=== PATIENT | female | born 1990 | race Caucasian/White ===

== ENCOUNTER → 2019-12-06 | Outpatient (CLI) | payer OTHER ==
--- NOTE | 2019-12-07 03:52 | REP ---
Clinical: Dating and viability. Technique: Transabdominal first trimester obstetrical ultrasound with color Doppler evaluation. Findings: Ultrasound examination demonstrates single live early intrauterine . CRL of 5.5 cm and mean sac diameter of 5.2 cm corresponds to 11 weeks 4 days gestational age with estimated date of delivery 06/22/2020. heart rate equals 167 beats per minute. No gross abnormalities are identified. Maternal ovaries appear normal. Placenta identified anteriorly. Cervix measures 3.3 cm length and appears closed. Impression: Single live early intrauterine at 11 weeks 4 days gestational age. Complete anatomical assessment should be performed at 19-20 weeks.
== END ==
LOC: M WHC 08:26
PROVIDERS: ATTEND Obstetrics & Gynecology
DX: Z36.89 Encounter for other specified antenatal screening (principal); Z3A.11 11 weeks gestation of pregnancy

== ENCOUNTER 2020-06-17 13:51 | Inpatient (IN) | payer OTHER ==
[2020-06-17] VITALS (21 sets, daily range): BP systolic 93–131; BP diastolic 50–74
[~2020-06-17] VITALS: Ht 152.4 cm; Wt 80.5 kg
[~2020-06-17 13:51] MED LIST changes: -DOCU100C16 PO; -IBUP-1022 PO
[2020-06-17] MEDS ORDERED: LACTATED RINGER'S 1000 ML IV STA (14:14)
--- NOTE | 2020-06-17 14:35 | HPEPDOC ---
Obstetrical History & Physical General Date of Admission Jun 17, 2020 at 14:12 History of Present Illness 30 yo at 39+2 weeks gestation by 11+4 week US on [id number] presents to L&D with the complaint of continued regular, painful contractions. She denies any vaginal bleeding or leakage of fluid. She endorses excellent movement. Chief Complaint: Contractions, term Information Provided By: Patient Age: 30 : 3 Term: 2 Pre-term: 0 Abortions: 0 Livin Care Care: Good Care Dating Final EDC: Jun 22, 2020 Final EDC for Daily Update: Jun 22, 2020 Final EDC by: 1st trimester (US) (11+4 week US on [id number] set OSEAS of [id number]) Antepartum Course Diagnos(e)s Overweight Cousin with trisomy 21. Low risk cff DNA genetic screening. 1hr GTT 148, 3hr GTT wnl Past Medical History Past Obstetrical History : Past Obstetrical History: Multigravida ( X2 at term. Pelvis proven to 7lbs 14oz.) Complications: No P[employer]ER [employer] History: No pertinent history Past Medical History Medical History Denies Surgical History: Denies/None Family History Significant Family History: No pertinent family hx Social History Marital Status: Family situation: Spouse/partner home Psychosocial History: No pertinent psych hx * Smoker: non-smoker Alcohol: Denies Drugs: denies Abuse Violence Screening Have you been hit/kicked/slapp: No Have you been sexually assault: No Imunizations Tdap status: current Influenza Status: current Allergies Coded Allergies: No Known Allergies (Unverified , 06/17/20) Medications Scheduled No.137/Iron/Folic Acd ( Vitamin Tablet) 1 Each Tablet, 1 TAB PO DAILY Physical Examination Physical Examination GENERAL: Alert and oriented times three. ABDOMEN: Gravid and non-tender to touch. FETUS: Is vertex (VTX) by sterile vaginal examination (SVE) EXTREMITIES: No edema. Vital Signs/I&O Vital Signs Date Time Temp Pulse Resp B/P (MAP) Pulse Ox O2 Delivery O2 Flow Rate FiO2 06/17/20 14:03 97.8 58 20 113/68 (83) Laboratory Data 24H LABS Laboratory Tests 2 06/17/20 14:17: Serology Scanned Report Hepatitis B Testing Urine Culture: No Growth Pertinent Laboratoy Data Blood Type: A+ RBC Antibody Screen: Negative HIV: Negative Hepatitis B: Negative Hepatitis C: Unknown Rapid Plasma Reagin: Nonreactive Rubella: Immune Varicella: Immune Chlamydia/Gonorrhea: Negative Group B Streptococcus: Negative Quad Screen Test: Unknown (Low risk cff DNA genetic screening) Cystic Fibrosis: Unknown Glucose Tolerance Test: 148 (3hr GTT normal) Anatomy Ultrasound Placenta Location: Anterior Normal Anatomy: Yes Placenta Previa: No Steroid Therapy Steroid Therapy: No Vaginal Examination Dilation: 6 cm Effacement: 90% Station: -1 Cervical Consistency: Soft Cervical Position: Middle Presentation: Cephalic presentation Position: Vertex (occiput) Assessment Heart Rate (FHR): 120 Variability: Moderate Accelerations: Positive Decelerations: Early Tocometer Contractions: Yes Frequency: regular, every 1-3 min. Duration: greater than 60 seconds Strength: palpated as strong Assessment/Plan Assessment 30 yo at 39+2 weeks gestation presented to L&D in active labor. Plan Admit for expectant management of labor. Apply IV fluids. GBS negative. Clear liquid diet. Patient may have epidural if desired. Anticipate . Marshal Obregon, DO Labor and Delivery Counseling Vaginal / Operative vaginal delivery / C section counseling We will deliver your baby through the vagina with possible assistance of forceps or vacuum device if needed for maternal or indications. Forceps and vacuum are devices that can assist with vaginal delivery when normal pushing efforts cannot achieve delivery on their own or when delivery is needed in an emergency for baby's well-being. Medications may be required to induce or augment (help) your labor in order to achieve a vaginal delivery. An episiotomy may be required to help your baby to delivery vaginally. You may also require repair of any lacerations or tears of your vagina or vulva that are caused by delivery. In some cases, emergencies can occur that require an emergency section delivery so quickly that there may not be enough time to stop and complete consent forms for section. Understand that if this occurs, your providers will discuss the need for a section with you before they proceed with surgery. section is the delivery of your baby through an incision in your abdomen. In some situations, section may be safer to mom and baby than continuing labor and is only performed when clinically indicated. Risks of vaginal delivery include but are not limited to: Bleeding, infection, injury to the vagina, pelvic structures, injury to baby, damage to the uterus, reactions to anesthesia, uterine rupture, risk of hysterectomy for life threatening bleeding, or . Medications used to induce or augment labor may increase your risk for infection, uterine tachysystole, uterine rupture, heart rate abnormalities, need for emergency delivery or possible hysterectomy, and hemorrhage. Additional risks for use of forceps and vacuum include: increased risk of perineal and vaginal lacerations, risk of urinary or bowel incontinence, increased risk of injury to baby with bruising, scratches, hematomas on the head, or intracranial bleeding. Ms. Rangel appears to understand these risks and elects to proceed. She also consents to a blood transfusion if necessary. DO MELY Birch CHRISTOPHER J. DO Jun 17, 2020 14:35
[2020-06-17 14:44] LABS: HEMATOCRIT 32.2 % (36.0-47.0); HEMOGLOBIN 9.8 g/dl (12.0-15.5); MEAN CORPUSCULAR HEMOGLOBIN 24.7 pg (27.0-33.0); MEAN CORPUSCULAR HGB CONC 30.4 g/dl (32.0-36.5); MEAN CORPUSCULAR VOLUME 81.3 fl (80.0-96.0); PLATELET COUNT, AUTOMATED 205 10^3/uL (150-450); RED BLOOD COUNT 3.96 10^6/uL (4.00-5.40); WHITE BLOOD COUNT 13.8 10^3/uL (4.0-10.0)
[2020-06-17] MEDS ORDERED: OXYTOCIN DRIP 30 UNITS in IV 1 EA IV SCH ×2 (15:00→18:19)
[2020-06-17] MEDS ORDERED: FENTANYL 2MCG/ML ROPIVACAINE 0.2% IN 0.9% NACL 100ML IVBAG As Ordered ONE (15:08)
[2020-06-17] MEDS ORDERED: REFRIGERATOR IV KEYS XX PRN (16:15)
[2020-06-17] MEDS ORDERED: ONDANSETRON 4MG/2ML VIAL IV PRN ×2 (16:15→18:30)
[2020-06-17] MEDS ORDERED: EPIDURAL/PCA KEYS XX PRN (16:15)
[2020-06-17] MEDS ORDERED: diphenhydrAMINE 50MG/ML VIAL (J1200) IV PRN (16:15)
[2020-06-17] MEDS ORDERED: FENTANYL/ROPIVACAINE/NACL BAG 100 ML EPIDURAL SCH (16:15)
[2020-06-17] MEDS ORDERED: ePHEDrine SULFATE 25 MG/5 ML(5MG/ML) SYRINGE IV PRN (16:15)
[2020-06-17] MEDS ORDERED: EPIDURAL COMMENT XX SCH (16:15)
[2020-06-17] MEDS ORDERED: LACTATED RINGER'S 1000 ML IV PRN (16:15)
[2020-06-17] MEDS ORDERED: NALOXONE INJ 0.4MG/1ML VIAL (J2310 PER 1MG) IV PRN (16:15)
[2020-06-17] MEDS ORDERED: LR 1,000 ML IV SCH (16:45)
--- NOTE | 2020-06-17 17:45 | IPNPDOC ---
Text Note Date of Service The patient was seen on 06/17/20. NOTE Noreen is comfortable with her epidural in place. She reports feeling i ntermittent pressure. Cervix: C/C/+1. No membranes palpated. Unclear when SROM occured. FHR Cat II due to intermittent variable decels. Will start pushing. DO Sabas VS,Coline, I+O VS, Fishbone, I+O Laboratory Tests 06/17/20 14:30 Vital Signs Date Time Temp Pulse Resp B/P (MAP) Pulse Ox O2 Delivery O2 Flow Rate FiO2 06/17/20 17:18 77 104/55 (71) 06/17/20 14:03 97.8 20 JOSÉ ANTONIO BOONE DO Jun 17, 2020 17:45
--- NOTE | 2020-06-17 18:27 | DNPDOC ---
[facility] Delivery Note Delivery Note DATE OF DELIVERY: 17Jun2020 at ~1800 PREDELIVERY DIAGNOSIS: 39+2 weeks gestation and active labor POST DELIVERY DIAGNOSIS: Delivered. 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 She was C/C/+1 and had a desire to push. The bed was broken down and she was prepped for delivery. With excellent effort over about only 10 minutes, her baby delivered. Presentation was Perfecto with restitution to ROT. The left anterior shoulder delivered with gentle traction followed easily by the domitila kamla of the body. The was dried and stimulated on the field and a bulb suction was used. The was placed on the maternal abdomen. The three vessel umbilical cord was then clamped and cut by the FOB after appropriate time delay. Third stage was completed with gentle traction on on the cord and it was productive of an intact placenta. The uterus was firmed with massage and pitocin was administered IV bolus. Inspection of the cervix, vagina, labia, and perineum revealed no lacerations. The fundus was palpated again and was firm. Sponge, instrument, and needle counts were correct X2. Mother and infant stable when I left the room. DO MELY Birch CHRISTOPHER J. DO Jun 17, 2020 18:27
[2020-06-17] MEDS ORDERED: IBUPROFEN 800 MG TAB PO PRN (18:30)
[2020-06-17] MEDS ORDERED: ACETAMINOPHEN 500 MG TAB PO PRN (18:30)
[2020-06-17] MEDS ORDERED: RHOGAM 300 MCG (1500 IU) INJ (J2790) IM SCH (18:30)
[2020-06-17] MEDS ORDERED: DOCUSATE SODIUM 100 MG CAP PO PRN (18:30)
[2020-06-17] MEDS ORDERED: IBUPROFEN 600MG TAB PO PRN (18:30)
[2020-06-17] MEDS ORDERED: MEASLES,MUMPS,RUBELLA VACCINE INJ (MMR-II) (90707) SC SCH (18:30)
[2020-06-17] MEDS ORDERED: BENZOCAINE 20% HEMORRHOIDAL OINTMENT 28GM TUBE TOP PRN (18:30)
[2020-06-18] MEDS: ACETAMINOPHEN TAB 650MG DOSE (2X325MG) PO PRN ×2 (04:08→20:54)
[2020-06-18 06:19] VITALS: BP 94/52
--- NOTE | 2020-06-18 08:38 | IPNPDOC ---
Progress Note Date of Service: Jun 18, 2020 Progress Note Noreen is a 30 yo G3 now P3 who is PPD#1 s/p uncomplicated on 18Jun2020 at ~1800 after being admitted for active labor. Overnight, Noreen reports doing well overall. She is ambulating and tolerating a regular diet. Lochia is minimal. She does endorse some dysuria and urinary urgency/frequency and is concerned that she may have a UTI. Vitals - VSS, afebrile General - AAOX3, sitting up in bed, NAD Abdomen - Fundus firm at U-2. No fundal tenderness Extremities - No edema Overall Ms. Rangel is doing well. UA/UC obtained via straight cath to assess for UTI. Pending results, will treat if necessary. Likely discharge home tomorrow due to evening time of delivery. All patient questions answered. José Antonio Boone DO VS, I&O, 24H, Fish[place]michele Vital Signs/I&O Vital Signs Date Time Temp Pulse Resp B/P (MAP) Pulse Ox O2 Delivery O2 Flow Rate FiO2 06/18/20 06:19 99.0 72 18 94/52 (66) 06/17/20 20:14 99 I&O- Last 24 Hours up to 6 AM 06/18/20 06:00 Intake Total 2152.7 ml Output Total 1000 ml Balance 1152.7 ml Laboratory Data 24H LABS Laboratory Tests 2 06/17/20 14:17: Serology Scanned Report Hepatitis B Testing 06/17/20 14:30: Nucleated Red Blood Cells % (auto) 0.0 06/18/20 08:25: CBC/BMP Laboratory Tests 06/17/20 14:30 JOSÉ ANTONIO BOONE DO Jun 18, 2020 08:38
[2020-06-18 08:41] LABS: APPEARANCE, URINE HAZY (CLEAR); BACTERIA, URINE AUTO NEGATIVE (NEGATIVE); BILIRUBIN, URINE AUTO NEGATIVE (NEGATIVE); BLOOD, URINE BLOOD 2+ (NEGATIVE); COLOR, URINE YELLOW (YELLOW); GLUCOSE, URINE (UA) AUTO NEGATIVE (NEGATIVE); KETONE, URINE AUTO NEGATIVE (NEGATIVE); LEUKOCYTE ESTERASE, URINE AUTO NEGATIVE (NEGATIVE); MUCUS, URINE LARGE (NEGATIVE); NITRITE, URINE AUTO NEGATIVE (NEGATIVE); PROTEIN, URINE AUTO 1+ mg/dL (NEGATIVE); RBC, URINE AUTO 72 /HPF (0-3); SPECIFIC GRAVITY URINE AUTO 1.025 (1.002-1.035); SQUAMOUS EPITHELIAL CELL UR AU 5 /HPF (0-6); UROBILINOGEN, URINE AUTO 0.2 mg/dL (0.0-2.0); WBC, URINE AUTO 2 /HPF (0-3)
[2020-06-18] MEDS: PRENATAL VITAMINS CHEWABLE TABLET PO SCH (08:46)
[2020-06-18] MEDS: PHENAZOPYRIDINE 100 MG TAB PO SCH ×3 (11:26→20:50)
[2020-06-18 18:02] VITALS: BP 114/57
[2020-06-19] MEDS: ACETAMINOPHEN TAB 650MG DOSE (2X325MG) PO PRN (05:47)
[2020-06-19 06:10] VITALS: BP 102/52
[2020-06-19] MEDS ORDERED: DOCU100C16 PO (07:27)
[2020-06-19] MEDS ORDERED: IBUP-1022 PO (07:27)
[2020-06-19] MEDS: PHENAZOPYRIDINE 100 MG TAB PO SCH (08:33)
[2020-06-19] MEDS: PRENATAL VITAMINS CHEWABLE TABLET PO SCH (08:33)
--- NOTE | 2020-06-19 20:39 | DSES ---
DISCHARGE SUMMARY DATE OF ADMISSION: 06/17/2020 DATE OF DISCHARGE: 06/19/2020 This lady is a 30-year-old, 3, now para 3, admitted at 39 and 2 weeks of gestation with contractions. Had a spontaneous vaginal delivery, male infant, 8 pounds 11 ounces, scores of 8 and 9 at 1 and 5 minutes, respectively. On her second day, we discussed phlebitis, cystitis, mastitis, endometritis, and cellulitis, diet, exercise, pain management, perineal, breast, and wound care. Blood pressure on discharge is 102/52, respirations 16, pulse 61, temperature is 97.4. Admitting hemoglobin was 9.8, hematocrit 32.2, and platelets were 205. Patient has a 6 week checkup at [facility]. Medications are dispensed at [facility]. All questions were answered, 20 minute discussion. Plans are for discharge this morning, followup at [facility]. Baby will be discharged to [facility]. Patient was discharged improved. [facility]
== END 2020-06-19 12:15 | disposition home or self-care (01) | DRG 807 ==
LOC: M LDO 13:51 → M LDI 14:12 → M OBS 20:00
PROVIDERS: ADMIT Obstetrics & Gynecology; ATTEND Obstetrics & Gynecology
PROC: 10E0XZZ Delivery of Products of Conception, External Approach (ICD-10-PCS; principal; 2020-06-17)
DX: O80 Encounter for full-term uncomplicated delivery (principal); Z37.0 Single live birth; Z3A.39 39 weeks gestation of pregnancy

== ENCOUNTER → 2020-06-17 | Outpatient (CLI) | payer OTHER ==
[~2020-06-17] VITALS: Ht 152.4 cm; Wt 80.5 kg
[~2020-06-17] MED LIST: DOCU100C16 PO; IBUP-1022 PO; PRENTAB9 PO
--- NOTE | 2020-06-17 12:23 | IPNPDOC ---
Text Note Date of Service The patient was seen on 06/17/20. NOTE 30 yo at 39+2 weeks gestation presents to L&D with contraction pain. She denies any bleeding or leakage of fluid. She endorses movement. is uncomplicated. Chaperoned by L&D RN Vitals - VSS, afebrile, normotensive, non tachycardic General - AAOX3, sitting up in bed, NAD Cervix - 3/80-2, posterior. No change in cervical exam on repeat exam 2 hours later. FHR: Cat I with moderate variability, +accels, no decels Patient in latent labor. No cervical change in 2 hours. GBS negative. Lives 10 minutes away. Discharged home. Return to care for worsening contractions, leakage of fluid, bleeding, or decreased movement. All questions answered. DO MELY Obregon CHRISTOPHER J. DO Jun 17, 2020 12:22
== END ==
LOC: M LDO 09:38
PROVIDERS: ATTEND Obstetrics & Gynecology
DX: O60.03 Preterm labor without delivery, third trimester (principal); Z3A.39 39 weeks gestation of pregnancy

== ENCOUNTER → 2022-03-14 | Outpatient (CLI) | payer OTHER ==
[~2022-03-14] MED LIST changes: +DOCU100C16 PO; +IBUP-1022 PO; +ISOVUE-370 76% 100ML VIAL As Ordered ONE
== END ==
LOC: M RAD 16:52
PROVIDERS: ATTEND Physician Assistant
DX: H53.2 Diplopia (principal)
CPT/HCPCS: 71260; Q9967

== ENCOUNTER → 2022-04-01 | Outpatient (CLI) | payer OTHER ==
[~2022-04-01] MED LIST changes: -ISOVUE-370 76% 100ML VIAL As Ordered ONE
== END ==
LOC: M PLALAB 10:56
PROVIDERS: ATTEND Psychiatry & Neurology Neurology
DX: G70.00 Myasthenia gravis without (acute) exacerbation (principal)